=== PATIENT | female | born 1995 | race African-American/Black ===

== ENCOUNTER 2023-03-06 10:09 | Emergency (ER) | payer MEDICAID ==
[~2023-03-06] VITALS: Ht 167.6 cm; Wt 75.0 kg
[2023-03-06 10:10] VITALS: TEMP 98.2
[2023-03-06] MEDS ORDERED: AmLODIPine BESYLATE 5 MG TABLET PO ONE (11:00)
[2023-03-06 11:48] VITALS: BP 137/99; PULSE 77; RESP 16
[2023-03-06] MEDS ORDERED: AMLO2.5T96 PO (11:59)
== END 2023-03-06 12:32 | disposition home or self-care (01) ==
LOC: EMS 10:17
DX: I10 Essential (primary) hypertension (principal)
CPT/HCPCS: 99283

== ENCOUNTER 2023-08-06 11:43 | Emergency (ER) | payer MEDICAID ==
[~2023-08-06] VITALS: Ht 165.1 cm; Wt 88.2 kg
[~2023-08-06 11:43] MED LIST: AMLO2.5T96 PO
[2023-08-06 11:47] VITALS: TEMP 98.7
[2023-08-06] MEDS ORDERED: METO25TA3 PO (11:48)
[2023-08-06] MEDS ORDERED: CEPH-558 PO (12:45)
[2023-08-06] MEDS ORDERED: DIPH-1243 PO (12:47)
[2023-08-06 12:56] VITALS: BP 143/91; PULSE 58; RESP 16
== END 2023-08-06 13:07 | disposition home or self-care (01) ==
LOC: EMS 11:43
DX: R21 Rash and other nonspecific skin eruption (principal); I10 Essential (primary) hypertension
CPT/HCPCS: 99283